=== PATIENT | female | born 1985 | race Caucasian/White ===

== ENCOUNTER 2019-06-30 08:58 | Emergency (ER) | payer SELFPAY ==
[2019-06-30 09:01] VITALS: BP 121/63; PULSE 79; RESP 18; TEMP 36.7; O2SAT 100
--- NOTE | 2019-06-30 10:22 | PC.NURSE ---
Patient called for room assingment, no answer. ED security states that patient walked out at [id number]
== END 2019-06-30 10:08 | disposition left against medical advice (07) ==
LOC: ANHED 10:31
PROVIDERS: PCP Nurse Practitioner Adult Health
DX: Z53.21 Procedure and treatment not carried out due to patient leaving prior to being seen by health care provider (principal)
CPT/HCPCS: 99199

== ENCOUNTER 2020-04-13 13:27 | Emergency (ER) | payer SELFPAY ==
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
[2020-04-13 14:25] VITALS: BP 130/60; PULSE 72; RESP 14; TEMP 36.4; O2SAT 100
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
[2020-04-13 16:06] VITALS: BP 127/76; PULSE 76; RESP 18; O2SAT 99
== END 2020-04-13 16:07 | disposition home or self-care (01) ==
PROVIDERS: Emergency Provider Emergency Medicine; PCP Nurse Practitioner Adult Health
DX: S16.1XXA Strain of muscle, fascia and tendon at neck level, initial encounter (principal); F17.200 Nicotine dependence, unspecified, uncomplicated; M25.512 Pain in left shoulder; V49.40XA Driver injured in collision with unspecified motor vehicles in traffic accident, initial encounter
CPT/HCPCS: 72125; 72128; 73030; 99284

== ENCOUNTER 2020-07-10 17:54 | Emergency (ER) | payer OTHER, SELFPAY ==
[2020-07-10 18:00] VITALS: BP 134/74; PULSE 86; RESP 16; TEMP 37.1; O2SAT 99
--- NOTE | 2020-07-10 18:42 | ED.FEMALEGU ---
HPI - Female Genitourinary General Chief complaint: Urogenital-Female Stated complaint: POS UTI/ITCHING/RASH Source: patient Mode of arrival: ambulatory Limitations: no limitations History of Present Illness HPI Narrative: Patient is a 35-year-old female who presents complaining of of urinary frequency and irritation. She denies significant medical history. She denies taking any uoim-[id number]-ugwaess medications for symptom relief. She denies exposure to STDs, she reports same partner for the past 5 years. She denies all other complaints MD elicited complaint: UTI Related Data Home Medications Medication Instructions Recorded Confirmed quetiapine 07/10/20 Allergies Allergy/AdvReac Type Severity Reaction Status Date / Time No Known Allergies Allergy Unknown Verified 06/30/19 09:04 Review of Systems Review of Systems: Narrative: CONSTITUTIONAL: Denies fever, chills, or sweats. EYES: Denies visual changes, redness, or discharge. ENT: Denies rhinorrhea, congestion, sore throat, or otalgia. CARDIOVASCULAR: Denies chest pain, palpitations, or edema. RESPIRATORY: Denies cough or dyspnea. GASTROINTESTINAL: Denies abdominal pain, nausea, vomiting, or diarrhea. GENITOURINARY: Reports dysuria, frequency and irritation. SKIN: Denies rash or itching. MUSCULOSKELETAL: Denies back pain, joint pain, or myalgia. NEUROLOGIC: Denies headache, numbness, dizziness, or weakness. PSYCHIATRIC: Denies anxiety or depression. PMFSH Past Medical History Medical History No significant past medical history Surgical History Surgical History H/O arthroscopy of knee Family History Family History Other No significant family history Social History Social History Smoking status: Current every day smoker Tobacco type: cigarettes Alcohol intake: never Substance use: never Living arrangements: with family Gender identity (if verbalized by the patient): Female Exam Narrative: Exam Narrative: GENERAL: Well-appearing, well-nourished, and in no acute distress. HEAD: Normocephalic, atraumatic. EYES: No redness or drainage. ENT: Mucous membranes pink and moist. CHEST: No respiratory distress. HEART: Regular rate and rhythm. GI: Soft, nontender without rebound, or guarding. : Labial irritation, no vaginal discharge noted. EXTREMITIES: Normal range of motion. SKIN: Warm, dry, no rash. NEURO: No focal deficits. Alert and oriented x3. Gait steady. PSYCH: Normal affect. No signs of depression or anxiety. Course Vital Signs Vital signs: Vital Signs Temperature 37.1 C 07/10/20 18:00 Pulse Rate 86 07/10/20 18:00 Respiratory Rate 16 07/10/20 18:00 Blood Pressure 134/74 07/10/20 18:00 Pulse Oximetry 99 07/10/20 18:00 Temperature 37.1 C 07/10/20 18:00 Pulse Rate 86 07/10/20 18:00 Respiratory Rate 16 07/10/20 18:00 Blood Pressure 134/74 07/10/20 18:00 Pulse Oximetry 99 07/10/20 18:00 Reviewed-patient is informed that they may have pre-hypertension or hypertension based on a blood pressure reading. I recommend the patient call the primary care provider listed on their discharge instructions or a physician of their choice this week to arrange follow-up for further evaluation of possible pre-hypertension or hypertension. MDM - Female Genitourinary MDM Narrative Medical decision making narrative: Patient has leukocytes positive on UA. Patient be treated for UTI at this time. Patient also appears to have vaginal irritation, declines STD testing at this time. No vaginal discharge noted. Instructed to follow-up with [facility] or PCP for further care if symptoms persist. Differential Diagnosis Differential diagnosis: Likely urinary tract infection, bacterial vaginosis, vagini
== END 2020-07-10 18:58 | disposition home or self-care (01) ==
PROVIDERS: Emergency Provider Nurse Practitioner; PCP Nurse Practitioner Adult Health
DX: N39.0 Urinary tract infection, site not specified (principal); F17.210 Nicotine dependence, cigarettes, uncomplicated
CPT/HCPCS: 81003; 87086; 99213; G0463

== ENCOUNTER 2020-10-07 16:27 | Emergency (ER) | payer OTHER, SELFPAY ==
--- NOTE | ~2020-10-07 | XR_ITS ---
EXAMINATION: XR chest 2V DATE: 10/07/2020 16:48 INDICATION: Cough and shortness of breath TECHNIQUE: PA and lateral views of the chest were obtained. COMPARISON: None FINDINGS: Mild bronchial wall thickening in the perihilar regions. No focal airspace opacities, pulmonary edema , pleural effusion or pneumothorax. The cardiomediastinal silhouette is normal. Mild thoracic spondyl osis. IMPRESSION: 1. Perihilar bronchial wall thickening without focal airspace disease which could be seen with bronch itis or reactive airway disease/asthma. Reviewed, dictated and finalized at location A. IMPRESSION: 1. Perihilar bronchial wall thickening without focal airspace disease which cou ld be seen with bronchitis or reactive airway disease/asthma.
--- NOTE | ~2020-10-07 | XR_ITS ---
EXAMINATION: XR wrist RT min 3V DATE: 10/07/2020 16:48 INDICATION: Nontraumatic right wrist pain TECHNIQUE: Posteroanterior, ulnar deviation, oblique, and lateral views of the right wrist were obtai solitario. COMPARISON: none FINDINGS: Alignment is normal. No fracture. 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 Remaining joint spaces are normal. Soft tissues are unremarkable. IMPRESSION: 1. Mild triscaphe osteoarthritis. Reviewed, dictated and finalized at location A.
[2020-10-07 16:33] VITALS: BP 97/76; PULSE 102; RESP 16; TEMP 37; O2SAT 97
--- NOTE | 2020-10-07 16:38 | ED.URI ---
HPI - URI/Sore Throat General Chief Complaint: Upper Respiratory Infection Stated Complaint: chest pain Time Seen by Provider: 10/07/20 16:32 Source: patient and RN notes reviewed Mode of arrival: ambulatory Limitations: no limitations History of Present Illness HPI Narrative: 35-year-old female presents to the [facility] with complaints of shortness of breath and cough for 2 days. Also complains of 2 weeks of right wrist pain on the radial aspect that radiates up into her thumb and into her elbow. States that she did see a doctor for the pain however does not remember who or where it was. States that pain in her wrist has been so bad she has had a call into work. Patient states that she is wheezing, has a history of asthma. Denies any other significant past medical history. Related Data Allergies Allergy/AdvReac Type Severity Reaction Status Date / Time No Known Allergies Allergy Unknown Verified 10/07/20 16:38 Review of Systems Review of Systems: All systems reviewed & are unremarkable except as noted in HPI and below Constitutional: Constitutional: Reports no additional constitutional complaints, Denies chills and Denies fever(s) Eyes: Eyes: Reports no additional eye complaints ENT: Reports system reviewed and no additional complaints, except as documented, Denies dysphagia, Denies vertigo, Denies dizziness, Denies epistaxis, Denies nasal congestion and Denies sore throat Cardiovascular: Cardiovascular: Reports no additional cardiovascular complaints and Denies chest pain Respiratory: Respiratory: Reports as per HPI, Reports cough, Reports dyspnea and Reports wheezing Gastrointestinal: Gastrointestinal: Reports no additional gastrointestinal complaints, Denies abdominal pain, Denies diarrhea, Denies nausea and Denies vomiting Musculoskeletal: Musculoskeletal: Reports as per HPI and Reports arthralgias (Right wrist base of thumb) Integumentary/Breasts: Skin/Breast: Reports system reviewed and no additional complaints, except as docu and Denies rash Neurologic: Reports system reviewed and no additional complaints, except as documented, Denies vertigo, Denies dizziness, Denies syncope, Denies headache(s), Denies focal weakness and Denies numbness Psychiatric: Psychiatric: Reports no additional psychiatric complaints Endocrine: Endocrine: Reports no additional endocrine complaints Allergic/Immunologic: Allergic/Immunologic: Reports no additional allergic/immunologic complaints PMFSH Past Medical History Medical History No significant past medical history Surgical History Surgical History H/O arthroscopy of knee Family History Family History Other No significant family history Social History Social History Smoking status: Current every day smoker Tobacco type: cigarettes Alcohol intake: never Substance use: never Gender identity (if verbalized by the patient): Female Comments At the time of my signature, I reviewed and agree with the nursing past medical, surgical, social, and family history. There is no relevant family history pertinent to the patient complaint. Exam Const: General: healthy appearing, no acute distress and alert Nutritional Appearance: well nourished Orientation/consciousness: patient oriented x3 Limitations: no limitations HENMT: Head: normal to inspection Eyes: Pupils: Equal, round and reactive pupils present Neck: Neck: normal visual inspection, no lymphadenopathy and no meningeal signs Chest: Chest palpation & inspection: normal inspection of the chest Resp: Effort & Inspection: normal respiratory effort Auscultation: wheezes expiratory wheezes, inspiratory wheezes and throughout Cardio: Rate: regular rate Rhythm: regular rhythm Back/Spine/Pelvis: Back: no CVA ten
[2020-10-07] MEDS: ALBUTEROL SULFATE NEB 2.5 MG/3 ML INH INHALATION (17:05)
[2020-10-07] MEDS: IPRATROPIUM BR 0.02% INH SOLN 0.5 MG/2.5 ML VIAL INHALATION (17:05)
[2020-10-07 17:08] VITALS: PULSE 97; RESP 16; O2SAT 99
== END 2020-10-07 18:10 | disposition home or self-care (01) ==
PROVIDERS: Emergency Provider Nurse Practitioner; PCP Nurse Practitioner Adult Health
DX: J20.9 Acute bronchitis, unspecified (principal); J45.901 Unspecified asthma with (acute) exacerbation; M18.11 Unilateral primary osteoarthritis of first carpometacarpal joint, right hand
CPT/HCPCS: 71046; 73110; 94640; 99214; G0463

== ENCOUNTER 2021-06-18 09:08 | Emergency (ER) | payer OTHER, SELFPAY ==
[2021-06-18 09:17] VITALS: BP 137/81; PULSE 96; RESP 16; TEMP 36.5; O2SAT 99
--- NOTE | 2021-06-18 09:22 | ED.FEMALEGU ---
HPI - Female Genitourinary General Chief complaint: Urogenital-Female Stated complaint: BV Time Seen by Provider: 06/18/21 09:22 Source: patient, RN notes reviewed and old records reviewed Mode of arrival: ambulatory Limitations: no limitations History of Present Illness HPI Narrative: 36 yo female presents to the [facility] with C/O BV. Complains of 3 days of suprapubic pressure, vaginal swelling, fish smell and thick white discharge. Has had a new partner. Has HX of BV and UTIs. No burning with urination. States that she has external burning after or at the end of urination. MD elicited complaint: vaginal discharge, pelvic pain, possible STD and genital swelling Related Data Home Medications Medication Instructions Recorded Confirmed Flonase Allergy Relief 2 spray INTRANASAL DAILY 06/18/21 06/18/21 divalproex 250 mg PO BID 06/18/21 06/18/21 montelukast [Singulair] 10 mg PO DAILY 06/18/21 06/18/21 Allergies Allergy/AdvReac Type Severity Reaction Status Date / Time No Known Allergies Allergy Unknown Verified 06/18/21 09:49 Review of Systems Review of Systems: All systems reviewed & are unremarkable except as noted in HPI and below Constitutional: Constitutional: Reports no additional constitutional complaints, Denies chills and Denies fatigue Eyes: Eyes: Reports no additional eye complaints ENT: Reports system reviewed and no additional complaints, except as documented Cardiovascular: Cardiovascular: Reports no additional cardiovascular complaints and Denies chest pain Respiratory: Respiratory: Reports no additional respiratory complaints, Denies cough and Denies dyspnea Gastrointestinal: Gastrointestinal: Reports no additional gastrointestinal complaints, Denies abdominal pain, Denies diarrhea, Denies nausea and Denies vomiting Genitourinary: Genitourinary: Reports as per HPI, Denies hematuria, Denies nocturia, Reports genital pruritis, Denies genital lesions, Reports dyspareunia, Denies dysuria, Denies flank pain, Reports vaginal discharge, Reports vaginal odor and Reports vaginal pruritus Musculoskeletal: Musculoskeletal: Reports no additional musculoskeletal complaints and Denies back pain Integumentary/Breasts: Skin/Breast: Reports system reviewed and no additional complaints, except as docu Neurologic: Reports system reviewed and no additional complaints, except as documented Psychiatric: Psychiatric: Reports no additional psychiatric complaints Endocrine: Endocrine: Denies fatigue Allergic/Immunologic: Allergic/Immunologic: Reports no additional allergic/immunologic complaints PMFSH Past Medical History Medical History No significant past medical history Surgical History Surgical History H/O arthroscopy of knee Family History Family History Other No significant family history Social History Social History Smoking status: Current every day smoker Tobacco type: cigarettes Alcohol intake: never Substance use: never Gender identity (if verbalized by the patient): Female Comments At the time of my signature, I reviewed and agree with the nursing past medical, surgical, social, and family history. There is no relevant family history pertinent to the patient complaint. Exam Const: General: healthy appearing, no acute distress and alert Nutritional Appearance: well nourished Orientation/consciousness: patient oriented x3 Limitations: no limitations HENMT: Head: normal to inspection Ears: external ears normal Eyes: Conjunctivae: conjunctivae normal Pupils: Equal, round and reactive pupils present Neck: Neck: normal visual inspection, no lymphadenopathy and no meningeal signs Chest: Chest palpation & inspection: normal inspection of the chest and abnorm
[2021-06-18] MEDS: cefTRIAXone 500 MG, LIDOCAINE HCL 1% LOCAL INJ 1 ML IM (10:05)
== END 2021-06-18 10:15 | disposition home or self-care (01) ==
PROVIDERS: Nurse Practitioner Family; Emergency Provider Nurse Practitioner; PCP Nurse Practitioner Adult Health
DX: N76.0 Acute vaginitis (principal); Z20.2 Contact with and (suspected) exposure to infections with a predominantly sexual mode of transmission; F17.210 Nicotine dependence, cigarettes, uncomplicated
CPT/HCPCS: 81003; 87070; 87086; 87088; 87491; 87591; 87661; 96372; 99214; G0463; J0696